=== PATIENT | male | born 1955 | race Caucasian/White ===

== ENCOUNTER 2018-09-13 11:41 | Outpatient (REF) | payer BC, SELFPAY ==
[2018-09-13 21:39] LABS: Anion Gap 8.8 mmol/L (3-11); BUN 15 mg/dL (7-18); CO2 29.2 mmol/L (21.0-32.0); Calcium 9.5 mg/dL (8.5-10.1); Chloride 103 mmol/L (98-107); Glucose 87 mg/dL (70-100); Potassium 4.1 mmol/L (3.5-5.1); Sodium 141 mmol/L (136-145)
== END 2018-09-13 12:01 ==
LOC: NCHCN 11:41
PROVIDERS: PCP Internal Medicine; Visit Provider Internal Medicine
DX: I10 Essential (primary) hypertension (principal)
CPT/HCPCS: 80048

== ENCOUNTER 2019-01-01 07:22 | Day surgery (SDC) | payer BC, SELFPAY ==
--- NOTE | 2019-01-01 06:44 | W.COLOREPORT ---
Date of service: 01/01/19 Time of Service: 10:05 Colonoscopy Report Date of procedure: 01/01/19 Pre-op diagnosis general: Family history of colon Cancer, screening Post-op diagnosis procedure note: same (multiple polyps) Procedure: Colonoscopy with polypectomy with cold forceps Surgeon: Fiorella Norris Anesthesia proc note operative: other (General/ ASA 2/Cedric Niño, HECTOR) Estimated blood loss (mL): 5 Pathology: other (Ascending polyp, sigmoid polyp x6, rectal polyp x3) Complications: None Disposition: same day Indications: Mr. Ruvalcaba is a pleasant 63 year old male seen in the office for a follow up Colonoscopy. He has a family history of colon Cancer in his sister at age 50. His last Colonoscopy was in 2012 and was incomplete due to incomplete prep. Risks, benefits and complications have been reviewed. Complications include but are not limited to bleeding, pain, perforation, missed small lesion/polyp, sore throat, aspiration and adverse reaction to the medications. Questions were entertained and answered to their satisfaction and they wished to proceed. No guarantees were given or implied. Prep: Miralax/Dulcolax Procedure Start Time: 10:05 Procedure End Time: 10:41 Retraction Time: 29 minutes Findings: 10 sessile polyps Procedure Description: After informed consent was obtained the patient was taken to the procedure room and placed in a left decubitous position. Monitors were applied and a time out was done. The patients name, date of , procedure, allergies to medications and metal in their body was reviewed. The patient was then sedated. Once sedated and comfortable a rectal exam was done. External exam was normal. Internal exam revealed a normal sphincter tone and no palpable masses. The prostate felt smooth but large. The scope was then introduced and retro-flexed. No internal hemorrhoids were identified. There were 2 small flat polyps noted, no masses. The scope was then advanced to the cecum without difficulty. The TI and appendiceal orifice were identified. The scope was advanced into the terminal ileum which was normal. The prep was adequate. The scope was then slowly retracted over 29 minutes back into the rectum. Polyps were removed with cold forceps x1 in the ascending colon, x6 in the sigmoid colon and x3 in the rectum. The scope was removed and the patient was woken up and taken back to Same day surgery in stable condition. The patient tolerated the procedure well and there were no immediate complications. Follow up: The patient should follow up in 3-5 years unless they develop changes in bowel habits or other new gastrointestinal complaints.
--- NOTE | 2019-01-01 06:46 | W.PM.DSUDISC ---
Discharge Plan Disposition Patient Disposition: HOME Condition: Good Discharge Details Reason For Visit: Colon Cancer Screening, Family history Attending Provider: Fiorella Norris Primary Care Provider: Jaron Ramirez Home Meds and New Rx's Prescriptions: Continued diphenhydramine HCl [Benadryl] 25 MG capsule 25 mg PO HS RF: 0 losartan 50 MG tablet 50 mg PO DAILY RF: 0 atorvastatin 20 MG tablet 20 mg PO DAILY RF: 0 escitalopram oxalate 5 mg Tablet 5 mg PO DAILY AM RF: 0 Discontinued polyethylene glycol 3350 17 gram/dose powder 238 g PO ONCE Qty: 238 RF: 0 bisacodyl [Dulcolax (bisacodyl)] 5 mg tablet,delayed release (DR/EC) 5 mg PO ONCE Qty: 4 RF: 0 Discharge Instructions Instructions: Colonoscopy (DC), Colorectal Polyps (DC) Additional Instructions: Findings: 10 polyps Follow up: 3-5 years Please call if you develop: fevers >101.5 Nausea or Vomiting Abdominal pain that is not transient DAY SURGERY UNIT POST COLONOSCOPY INSTRUCTIONS 1. Because there will be medication in your system for the next 24 hours, you may feel a little sleepy. Your coordination will be affected. Therefore: a. Do not drive or operate dangerous equipment for 24 hours. b. Do not drink alcohol beverages for 24 hours (not even beer). c. Plan to go home and rest for the day. 2. Generally there are no restrictions on your activity after a day or so has gone by, but you may feel a bit fatigued for a few days. 3 After you arrive home you may have a light meal and return to a normal diet as you can tolerate it without feeling sick to your stomach. 4. After surgery, you may feel pain or discomfort. This should be only transient, but if it persists please contact your doctor. 5. If there are any questions regarding the findings of your procedure, please feel free to contact your doctor. 6. If you are unable to contact your doctor with a problem, contact the hospital at [phone]. 7. Continue all your regular medications unless directed otherwise. I understand the above instructions and have no questions. Signature of Patient or Responsible Adult Escort Date/Time Name of Responsible Adult Escort Signature of Nurse Date/Time Activity:: Activity as Tolerated Diet:: As Tolerated Discharge Orders Discharge Orders: Discharge Order (Routine); Ordered 01/01/19 Ordered By: Fiorella Norris DS: Diagnosis Discharge Diagnosis (1) S/P colonoscopy: Status: Acute (2) Colorectal polyps: Status: Acute
[2019-01-01 08:32] VITALS: BP 132/82; PULSE 85; RESP 16; TEMP 36; O2SAT 99
[2019-01-01] MEDS: Lactated Ringers 1,000 ML 80 ML IV (09:01)
--- NOTE | 2019-01-01 10:07 | BOWEL_PTH ---
PATIENT: Martinez Ruvalcaba LOC: [facility] U#:[id number] AGE/SX: 63/M ROOM: RE01/01/[address]: Fiorella Norris MD : [id number] BED: DIS: 01/01/2019 SPEC #: [id number] RECD: 01/01/19 12:57 STATUS: COURTNEY REQ #: [id number] LARRY: 01/01/19 10:[address]: Fiorella Norris DEPT: Surgical Specimen RECD BY: Marisa Miller ENTERED: 01/01/19 12:59 SP TYPE: Bowel OTHR DR: Jaron Ramirez Tissues: 1 - BIOPSY BOWEL 2 - BIOPSY BOWEL 3 - BIOPSY BOWEL Procedures: GROSS AND MICRO LEVEL 4 Comments: [id number]
[2019-01-01 11:35] VITALS: BP 119/75; PULSE 77; RESP 16; TEMP 36; O2SAT 96
== END 2019-01-01 11:32 | disposition home or self-care (01) ==
LOC: SUR 07:22
PROVIDERS: PCP Internal Medicine; Visit Provider Surgery
PROC: 0DJD8ZZ Inspection of Lower Intestinal Tract, Via Natural or Artificial Opening Endoscopic (ICD-10-PCS; CPT 45378; principal; 2019-01-01 10:00)
DX: Z12.11 Encounter for screening for malignant neoplasm of colon (principal); D12.2 Benign neoplasm of ascending colon; K63.5 Polyp of colon; K62.1 Rectal polyp; Z80.0 Family history of malignant neoplasm of digestive organs
CPT/HCPCS: 45380; 88305

== ENCOUNTER 2019-06-25 12:13 | Outpatient (REF) | payer BC, SELFPAY ==
[2019-06-25 21:56] LABS: Anion Gap 5.4 mmol/L (3-11); BUN 14 mg/dL (7-18); CO2 31.6 mmol/L (21.0-32.0); CREATININE 1.09 mg/dL (0.70-1.30); Calcium 9.3 mg/dL (8.5-10.1); Calculated LDL 80 mg/dL; Chloride 106 mmol/L (98-107); Cholesterol 146 mg/dL (50-200); Glucose 90 mg/dL (70-100); HDL Cholesterol 50 mg/dL (40-60); Potassium 4.2 mmol/L (3.5-5.1); Sodium 143 mmol/L (136-145); Triglyceride 83 mg/dL (30-150)
== END 2019-06-25 12:33 ==
LOC: NCHCN 12:13
PROVIDERS: PCP Internal Medicine; Visit Provider Internal Medicine
DX: I10 Essential (primary) hypertension (principal); Z13.220 Encounter for screening for lipoid disorders
CPT/HCPCS: 80048; 80061

== ENCOUNTER 2019-07-19 13:12 | Outpatient (REF) | payer BC, SELFPAY ==
[2019-07-19 21:09] LABS: Anion Gap 10.7 mmol/L (3-11); BUN 19 mg/dL (7-18); CO2 27.3 mmol/L (21.0-32.0); CREATININE 1.23 mg/dL (0.70-1.30); Calcium 9.3 mg/dL (8.5-10.1); Calculated LDL 47 mg/dL; Chloride 105 mmol/L (98-107); Cholesterol 140 mg/dL (50-200); Estimated GFR 59.82 (mL/min/1.73m2); Glucose 105 mg/dL (70-100); HDL Cholesterol 47 mg/dL (40-60); Potassium 3.8 mmol/L (3.5-5.1); Sodium 143 mmol/L (136-145); Triglyceride 231 mg/dL (30-150)
== END 2019-07-19 13:32 ==
LOC: NCHCN 13:12
PROVIDERS: PCP Internal Medicine; Visit Provider Internal Medicine
DX: E78.5 Hyperlipidemia, unspecified (principal); I10 Essential (primary) hypertension
CPT/HCPCS: 80048; 80061

== ENCOUNTER 2020-03-25 10:13 | Outpatient (REF) | payer BC, SELFPAY ==
[2020-04-01 03:23] LABS: SARS-CoV-2 RNA Undetected (Undetected)
== END 2020-03-25 10:33 ==
LOC: NCHCN 10:13
PROVIDERS: PCP Internal Medicine; Visit Provider Nurse Practitioner Family
DX: J02.9 Acute pharyngitis, unspecified (principal); Z11.59 Encounter for screening for other viral diseases
CPT/HCPCS: U0003

== ENCOUNTER 2020-03-31 01:33 | Outpatient (CLI) | payer BC, SELFPAY ==
--- NOTE | 2020-03-31 12:21 | DI.US_ITS ---
APPROVED REPORT EXAM: Comprehensive 2D, Doppler, and color-flow Echocardiogram Patient Location: Out-Patient Cylinder Filler: Mallory Brennan RDCS (AE) Indications: Aortic Insufficiency Other Information Study Quality: Adequate Conclusion Normal left ventricular chamber size and wall thickness. Estimated ejection fraction is 55 to 60%. There are no segmental wall motion abnormalities Normal right ventricular size and function Normal left and right atrial size The aortic valve is sclerotic. There is mild to moderate aortic regurgitation. There is no aortic s tenosis Mild mitral annular calcification. Mitral leaflets are normal there is trace mitral regurgitation Structurally normal tricuspid and pulmonic valves. Trace tricuspid and pulmonic regurgitation. Norm al estimated RVSP 22 mmHg Aortic root and ascending aorta are normal in size Wall motion Left Ventricle The left ventricle is normal size. The left ventricular systolic function is normal. The left ventric ular ejection fraction is within the normal range. There is normal left ventricular wall thickness. T here is normal LV segmental wall motion. There is no ventricular septal defect visualized. LVEF is 55 -60%. Right Ventricle The right ventricle is normal size. The right ventricular systolic function is normal. The RVSP is 22 .0 mmHg. Atria The left atrium size is normal. The right atrium size is normal. The interatrial septum is intact wit h no evidence for an atrial septal defect. Aortic Valve The Aortic valve is sclerotic. Aortic valve leaflets are mildly thickened. No hemodynamically signifi cant valvular aortic stenosis. Mild to moderate aortic regurgitation. Trace aortic regurgitation. Mitral Valve Mild mitral annular calcification. No evidence of mitral valve stenosis. Trace mitral regurgitation. Tricuspid Valve The tricuspid valve is normal in structure. There is no tricuspid valve stenosis. Trace tricuspid reg urgitation. Pulmonic Valve The pulmonary valve is normal in structure. There is no pulmonic valvular stenosis. Trace pulmonic re gurgitation. Great Vessels The aortic root is normal in size. The ascending aorta is mildly dilated. Aortic arch is normal in ca liber. IVC is normal in size and collapses >50% with inspiration. Pericardium There is no pericardial effusion. 2D Dimensions IVSD d PLAX 0.97 cm M: 0.6-1.2 LV Vol A2C d MOD 89.3 mL LVPW d PLAX 0.97 cm M: 0.6 - 1.2 LV Vol A4C d MOD 113.1 mL LVID d PLAX 5.27 cm M: 4.2 - 5.8 LA vol/ BSA A2C s A-L 28.7 mL/m2 LVDs 3.65 cm M: 2.5 - 4.0 LA vol/ BSA A4C s A-L 21.9 mL/m2 Ao Root d 3.08 cm M: 3.1 - 3.7 LA Vol/ BSA Biplane s A-L 26.6 mL/m2 RA Area A4C 16.98 cm2 LA Area A4C s MOD 15.99 cm2 RA Vol/ BSA A4C s A-L 26.1 mL/m2 LA Area A2C s MOD 17.27 cm2 Ao Asc Diam d 3.81 cm M: 2.6 - 3.4 LV EF A4C MOD 55.7 % LV EF Teichholz 57.4 % LV EF A2C MOD 55.9 % LVEF (Perdue's) 55.98 % M: 52 - 72 LV EF Biplane MOD 56.0 % LV Volume 80.52 mL M: 62 - 150 SV 58.81 mL LV Volume Index 43.05 mL/m2 M: 34 - 74 SV Index 31.35 mL/m2 LV Vol Biplane MOD 105.0 mL FS 30.40 % M-Mode TAPSE 2.67 cm (M/F) >1.7 LV Diastology MV E' medial 0.106 (>0.07 m/s) E/A Ratio 0.8 LV E/e MED 6.40 (<14) MV E Vmax 0.68 (0.4-1.3 m/s) MV E' lateral 0.100 (>0.1 m/s) MV A Vmax 0.85 (0.4-1.3 m/s) LV E/e LAT 6.80 (<14) MV E/A Ratio 0.77 MV E/E' medial 6.44 MV E/E' lateral 6.83 Aortic Valve LVOT Area 3.46 cm2 AoV Area Vmax 1.78 cm2 LVOT Vmax 1.09 m/s AoV Area/ BSA (Vmax) 0.95 cm2/m2 LVOT Mean Neal. 0.83 m/s ALEX Mean Neal. 2.10 cm2 LVOT Peak Grad 4.7 mmHg ALEX Mean Neal. Index 1.12 cm2/m2 LVOT Mean Grad 3.0 mmHg AR DT 1988 msec LVOT VTI 0.235 m AR PHT 577 msec LVOT Diam s 2.10 cm AoV Vmax 2.11 m/s Velocity Ratio 0.51 AoV Mean Neal. 1.37 m/s AoV Peak Grad 17.8 mmHg LVOT SV 81.30 mL AoV Mean Grad 8.8 mmHg AoV VTI 0.450 m AoV Area VTI 1.81 cm2 AoV Area/ BSA (VTI) 0.96 cm/m2 Mitral Valve MV DT 392 (160-240 msec) MV PHT 114 msec MV Area PHT 1.93 cm2 Pulmonary Valve PV Vmax 1.19 (0.5-1.5 m/s) RVOT Peak Gr. 1.35 mmHg PV Peak Grad 5.7 mmHg RVOT Mean Gr. 0.60 mmHg PV Mean Grad 2.9 mmHg RVOT VTI 0.126 m PV VTI 0.230 m RVOT Vmax 0.58 m/s Tricuspid Valve TR Peak Grad 19.0 mmHg TR Vmax 2.18 m/s RA Pressure 3.00 mmHg RVSP (TR) 22.0 mmHg
== END 2020-03-31 01:53 ==
PROVIDERS: PCP Internal Medicine; Visit Provider Internal Medicine Cardiovascular Disease
DX: I35.1 Nonrheumatic aortic (valve) insufficiency (principal); I10 Essential (primary) hypertension; E78.5 Hyperlipidemia, unspecified
CPT/HCPCS: 93306

== ENCOUNTER 2020-08-24 10:57 | Outpatient (REF) | payer BC, SELFPAY ==
[2020-08-24 21:34] LABS: ALT 36 U/L (16-63); AST 21 U/L (15-37); Albumin 4.3 g/dL (3.4-5.0); Alkaline Phosphatase 76 U/L (46-116); Anion Gap 9.9 mmol/L (3-11); BUN 17 mg/dL (7-18); Bilirubin, Total 0.4 mg/dL (0.2-1.0); CO2 26.1 mmol/L (21.0-32.0); CREATININE 1.08 mg/dL (0.70-1.30); Calculated LDL 98 mg/dL (<100); Chloride 105 mmol/L (98-107); Cholesterol 169 mg/dL (<200); Glucose 91 mg/dL (74-106); HDL Cholesterol 50 mg/dL (40-60); Potassium 3.9 mmol/L (3.5-5.1); Sodium 141 mmol/L (136-145); Total Protein 7.4 g/dL (6.4-8.2); Triglyceride 106 mg/dL (<150)
[2020-08-25 18:03] LABS: PSA, Screening 0.7 ng/mL (0.0-4.5)
== END 2020-08-24 11:17 ==
LOC: NCHCN 10:57
PROVIDERS: PCP Internal Medicine; Visit Provider Internal Medicine
DX: I10 Essential (primary) hypertension (principal); E78.5 Hyperlipidemia, unspecified; Z12.5 Encounter for screening for malignant neoplasm of prostate
CPT/HCPCS: 80053; 80061; 84153

== ENCOUNTER 2020-12-09 10:56 | Emergency (ER) | payer OTHER, SELFPAY ==
[2020-12-09 11:00] VITALS: BP 174/98; PULSE 66; RESP 16; TEMP 36.5; O2SAT 95
--- NOTE | 2020-12-09 11:00 | DI.RAD_ITS ---
EXAM: XR TOE LT GREAT CLINICAL HISTORY: ecchymosis and swelling post flexion injury. TECHNIQUE: 2D digital imaging was performed. COMPARISON: No exams were available for comparison FINDINGS: There is no evidence of fracture of the great toe. Some degenerative changes noted in the lateral as pect of the metatarsophalangeal joint of the great toe. No significant sesamoid displacement. No ab normal widening of the Lisfranc joint. No radiopaque foreign body. IMPRESSION: No great toe fracture evident. DATA REPOSITORY: RADIATION DOSE DELIVERED:
--- NOTE | 2020-12-09 11:13 | ED.GENADUL_ITS ---
Discharge Plan Disposition Patient Disposition: HOME Condition: Good Discharge Details Clinical Impression: Fracture of great toe Primary Care Provider: Senait Melendez ED Provider: Marisa Medrano Home Meds and New Rx's Prescriptions: No Action diphenhydramine HCl [Benadryl] 25 MG capsule 25 mg PO HS RF: 0 losartan 50 MG tablet 50 mg PO DAILY RF: 0 atorvastatin 20 MG tablet 20 mg PO DAILY RF: 0 escitalopram oxalate 5 mg tablet 10 mg PO DAILY AM RF: 0 Discharge Instructions Additional Instructions: Follow-up with orthopedic tomorrow to schedule appointment Ice, elevate Ibuprofen and Tylenol as needed for pain Limited weightbearing Wear the boot Blood pressure recheck by primary care physician return earlier should you have new or worsening complaints Referrals: Sawyer Parmar MD [ [facility] STAFF PHYSICIAN] - Medical Decision Making No additional evidence of trauma, no abrasion, I did see a possible media avulsion fracture on x-ray, Ortho read the x-ray is negative i will send the patient to orthopedics for follow-up He placed in a postoperative boot His [id number] Return precautions discussed and patient understanding Differential Diagnosis Differential Diagnosis: Fracture, strain, contusion, abrasion Medical Records Medical records reviewed: Yes I reviewed the patient's medical records. HPI This 65-year-old male presents with injury to his left great toe on Monday. He states that he flat his toe while walking on ice. He denies any additional injuries. He actually does not really report pain, he states that it more was ecchymotic and this concerned him. He denies any history of coagulopathy. Denies any additional complaints at this time. Denies pain with ambulation. Specifically denies head injury or ankle pain. Denies any strength or sensation change. General Date/Time Provider Initiated Documentation: 12/09/20 11:07 . Related Data Home Medications Medication Instructions Recorded Confirmed diphenhydramine HCl [Benadryl] 25 mg PO HS 01/10/13 12/09/20 losartan 50 mg PO DAILY tab-cap 07/15/15 12/09/20 atorvastatin 20 mg PO DAILY tab-cap 01/18/17 12/09/20 escitalopram oxalate 5 mg tablet 10 mg PO DAILY AM tab 03/28/19 12/09/20 Allergies Allergy/AdvReac Type Severity Reaction Status Date / Time No Known Allergies Allergy Verified 12/09/20 11:05 General Stated Complaint: Orthopedic NATHALIE: 4 Review of Systems Narrative: Review of systems obtained x3 and negative aside from indication HPI PFSH Medical History (Updated 12/09/20 @ 11:45 by CITLALY Cifuentes) Anxiety Colorectal polyps (~01/01/19) Hypercholesterolemia Surgical History History of arthroscopic knee surgery rt knee History of colonoscopy S/P colonoscopy (~01/01/19) Family History Mother No problems noted. Father No problems noted. Sister Carcinoma of colon, stage IV W/ LUNG METS Sister No problems noted. Brother No problems noted. Social History Smoking/Tobacco Use Status: Former Tobacco Use Quit Date: 11/16/05 Pack-years: 10 Tobacco: How many years used: 20 Smoking risk assessment performed?: Yes Drug use: Never Substance use type: does not use Do you feel safe at home: Yes Do you feel safe in your relationship?: Yes Exam Extrem Other: Left great toe ecchymotic, no tenderness to any additional areas on left foot or right foot No ankle tenderness on left, no knee tenderness on left, neurovascularly intact Course Vital Signs Vital signs: Vital Signs Temperature 36.5 C 12/09/20 11:00 Pulse 66 12/09/20 11:00 Respiratory Rate 16 12/09/20 11:00 Blood Pressure 174/98 H 12/09/20 11:00 Pulse Oximetry 95 12/09/20 11:00 Temperature 36.5 C 12/09/20 11:00 Temperature Source Oral 12/09/20 11:00 Pulse 66 12/09/20 11:00 Respiratory Rate 16 12/09/20 11:00 Respiratory Effort 12/09/20 11:06 Blood Pressure 174/98 H 12/09/20 11:00 Blood Pressure Position Sitting 12/09/20 11:00 Pulse Oximetry 95 12/09/20 11:00 Oxygen Delivery Method Room Air 12/09/20 11:00 Oxygen Flow Rate 0 12/09/20 11:00 Pain Level 1 12/09/20 11:00 Comment hx HTN 12/09/20 11:00
[2020-12-09 11:55] VITALS: BP 155/83
== END 2020-12-09 11:57 | disposition home or self-care (01) ==
PROVIDERS: Emergency Provider Physician Assistant; PCP Internal Medicine
DX: S92.492A Other fracture of left great toe, initial encounter for closed fracture (principal); W00.0XXA Fall on same level due to ice and snow, initial encounter
CPT/HCPCS: 99283; 73660; 99282

== ENCOUNTER 2021-06-01 01:04 | Outpatient (CLI) | payer BC, SELFPAY ==
--- NOTE | 2021-06-01 06:45 | DI.NM_ITS ---
APPROVED REPORT Exam: Exercise Treadmill Patient Location: Out-Patient Room/Bed: Stress Nurse: Cielo Koch RN Ordering Provider:CHUNG REYES, Contact Number: BMI: 25.82 Baseline Rhythm: Sinus Rhythm Indications: Shortness of breath, Fatigue. Medical History Medical History: Aortic valve regurgitation, HLD, CLOUD. Cardiac Medications: Atorvastatin, Losartan Allergies: No known drug allergies Cardiac Risk Factors: HTN, Hyperlipidemia, Smoking (former) Previous Cardiac Procedures: None Pretest Chest Pain Characteristics: No chest pain Exercise History: Sedentary Physical Disabilities: Knees Lung Sounds: Clear to auscultation Heart Sounds: Regular Stress Test Details Test: Exercise stress testing was performed using a Hugo protocol. Nuclear Acquisition: Rest Tc-99m/Stress Tc-99m 1 day Rest Isotope: Tc-99m Sestamibi. Dose: 10.5 Date: 06/01/2021 Injection Time: 0900 Stress Isotope: Tc-99m Sestamibi. Dose: 34.0 Date: 06/01/2021 Injection Time: 1026 HR Resting HR Supine: 63 bpm Max Heart Rate (APMHR): 157.496834 bpm Resting HR Standin bpm Target HR (85% APMHR): 133.301724 bpm Max HR Achieved: 143 bpm % of APMHR: 91.08 Recovery HR: 83 bpm HR response to stress: Normal HR response to stress BP Resting BP Supine: 150/86 mmHg Resting BP Standin/78 mmHg Max BP: 210/88 mmHg Recovery BP: 160/82 mmHg BP response to stress: Abnormal hypertensive response to stress. Comment: Hypertensive at baseline ECG Resting ECG: Sinus Rhythm Ectopy: None Stress ECG: Sinus Tachycardia ST Change: horizontal ST depression Lead(s): II, III, aVF, V4, V5 Stage: 1,[address] Deviation: 2 mm Arrhythmia: None Recovery ECG: Sinus Rhythm Recovery ST Change: Horizontal ST depression Lead(s): II, III, aVF, V4, V5 Recovery ST Deviation: 1.5 mm Recovery Arrhythmia: PACs Comment: flipped T waves at minute 3 of recovery, returning to baseline by minute 12 of recovery Clinical Reason for Termination: Fatigue Stress Symptoms: Dyspnea, General Fatigue Exercise duration: 7 min16 sec Highest Stage Reached: Stage 3: 3.4 mph at 14% grade. Exercise capacity: 9.0 METs Rate Pressure Product: 32077 Stress ECG Conclusion 1. The patient exercised for 7 minutes (9 METS). Exercise was stopped due to fatigue. 2. Blood pressure response to exercise was hypertensive. 3. The patient developed horizontal ST depressions in both the inferior and lateral leads during exer cise. These ST abnormalities lasted until 1 minute into recovery. Stress Test Summary STAGE Time (mins) Speed (mph) Grade (%) HR BP SYMPTOMS METS Supine 63 150/86 Standing 69 170/78 1 3 1.7 10 117 162/74 SpO2 91% 4.6 2 6 2.5 12 135 190/84 SpO2 92%, mild SOB 7 1 min recovery 120 200/84 SpO2 93% 3 min recovery 86 210/88 SpO2 98% 6 min recovery 79 168/84 9 min recovery 83 160/82 MPI Conclusion The patient's ejection fraction was 50% with stress. There were no wall motion abnormalities. There is no evidence of ischemia on the imaging portion exam. This represents a discordant stress test with abnormal ECG findings but normal imaging. Radiologist Interpretation Radiologist agrees with Chief Drafter's Interpretation. Radiologist Interpretation by: Thao Monteiro MD Interpretation Date/Time: 06/01/2021 15:52:45
--- NOTE | 2021-06-01 07:34 | DI.US_ITS ---
APPROVED REPORT EXAM: Comprehensive 2D, Doppler, and color-flow Echocardiogram Patient Location: Out-Patient Fisheries Officer: Mallory Brennan RDCS (AE) Indications: Fatigue, Aortic valve regurgitation Other Information Study Quality: Good Conclusion Left Ventricle : The left ventricle is normal size. The left ventricular systolic function is normal. The left ventricular ejection fraction is within the normal range. There is normal left ventricular wall thickness. There is normal LV segmental wall motion. The left ventricular diastolic function is normal. LVEF is 58%. Right Ventricle : The right ventricle is normal size. The right ventricular systolic function is norm al. Aortic Valve : The Aortic valve is sclerotic. Aortic valve is trileaflet. Mild to moderate aortic reg urgitation. There is no aortic valvular stenosis. Great Vessels : The aortic root is normal in size. The ascending aorta is moderately dilated. Aortic arch is normal in caliber. IVC is normal in size and collapses >50% with inspiration. Please see remainder of study for further details. Wall motion Left Ventricle The left ventricle is normal size. The left ventricular systolic function is normal. The left ventric ular ejection fraction is within the normal range. There is normal left ventricular wall thickness. T here is normal LV segmental wall motion. The left ventricular diastolic function is normal. There is no ventricular septal defect visualized. LVEF is 58%. Right Ventricle The right ventricle is normal size. The right ventricular systolic function is normal. Atria The left atrium size is normal. The right atrium size is normal. The interatrial septum is intact wit h no evidence for an atrial septal defect. Aortic Valve The Aortic valve is sclerotic. Aortic valve is trileaflet. There is no aortic valvular stenosis. Mild to moderate aortic regurgitation. Mitral Valve The mitral valve is normal in structure. No evidence of mitral valve stenosis. Mild mitral regurgitat ion. Tricuspid Valve The tricuspid valve is normal in structure. There is no tricuspid valve stenosis. Trace tricuspid reg urgitation. Unable to assess PA pressure. Pulmonic Valve The pulmonary valve is normal in structure. There is no pulmonic valvular stenosis. Mild pulmonic reg urgitation. Great Vessels The aortic root is normal in size. The ascending aorta is moderately dilated. Aortic arch is normal i n caliber. IVC is normal in size and collapses >50% with inspiration. Pericardium There is no pericardial effusion. 2D Dimensions IVSD d PLAX 0.98 cm M: 0.6-1.2 LV Vol A2C d MOD 138.4 mL LVPW d PLAX 0.93 cm M: 0.6 - 1.2 LV Vol A4C d MOD 133.3 mL LVID d PLAX 4.94 cm M: 4.2 - 5.8 LA vol/ BSA A2C s A-L 36.1 mL/m2 LVDs 3.25 cm M: 2.5 - 4.0 LA vol/ BSA A4C s A-L 24.0 mL/m2 Ao Root d 3.70 cm M: 3.1 - 3.7 LA Vol/ BSA Biplane s A-L 30.9 mL/m2 RA Area A4C 13.53 cm2 LA Area A4C s MOD 17.19 cm2 RA Vol/ BSA A4C s A-L 19.2 mL/m2 LA Area A2C s MOD 20.10 cm2 Ao Asc Diam d 3.94 cm M: 2.6 - 3.4 LV EF A4C MOD 57.9 % LV EF Teichholz 61.6 % LV EF A2C MOD 59.6 % LVEF (Perdue's) 59.41 % M: 52 - 72 LV EF Biplane MOD 59.4 % LV Volume 106.11 mL M: 62 - 150 SV 82.72 mL LV Volume Index 55.84 mL/m2 M: 34 - 74 SV Index 43.35 mL/m2 LV Vol Biplane MOD 139.2 mL FS 33.20 % M-Mode TAPSE 2.19 cm (M/F) >1.7 LV Diastology MV E' medial 0.079 (>0.07 m/s) E/A Ratio 0.8 LV E/e MED 9.35 (<14) MV E Vmax 0.74 (0.4-1.3 m/s) MV E' lateral 0.101 (>0.1 m/s) MV A Vmax 0.90 (0.4-1.3 m/s) LV E/e LAT 7.30 (<14) MV E/A Ratio 0.79 MV E/E' medial 9.35 MV E/E' lateral 7.33 Aortic Valve LVOT Area 3.69 cm2 AoV Area Vmax 1.90 cm2 LVOT Vmax 0.98 m/s AoV Area/ BSA (Vmax) 1.00 cm2/m2 LVOT Mean Neal. 0.66 m/s ALEX Mean Neal. 1.79 cm2 LVOT Peak Grad 3.8 mmHg ALEX Mean Neal. Index 0.94 cm2/m2 LVOT Mean Grad 2.0 mmHg AR DT 1812 msec LVOT VTI 0.251 m AR PHT 526 msec LVOT Diam s 2.15 cm AoV Vmax 1.91 m/s Velocity Ratio 0.51 AoV Mean Neal. 1.37 m/s AoV Peak Grad 14.5 mmHg LVOT SV 92.68 mL AoV Mean Grad 8.2 mmHg AoV VTI 0.424 m AoV Area VTI 2.18 cm2 AoV Area/ BSA (VTI) 1.15 cm/m2 Mitral Valve MV DT 320 (160-240 msec) MV PHT 93 msec MV Area PHT 2.37 cm2 Pulmonary Valve PV Vmax 1.17 (0.5-1.5 m/s) RVOT Peak Gr. 0.94 mmHg PV Peak Grad 5.5 mmHg RVOT Mean Gr. 0.55 mmHg PV Mean Grad 2.5 mmHg RVOT VTI 0.129 m PV VTI 0.228 m RVOT Vmax 0.48 m/s
== END 2021-06-01 01:24 ==
LOC: DI 01:05
PROVIDERS: PCP Internal Medicine; Visit Provider Internal Medicine Cardiovascular Disease
DX: I35.1 Nonrheumatic aortic (valve) insufficiency (principal); R53.83 Other fatigue; I77.810 Thoracic aortic ectasia
CPT/HCPCS: 78452; 93017; 93306

== ENCOUNTER 2021-08-30 18:52 | Outpatient (REF) | payer BC, SELFPAY ==
[2021-08-30 18:47] LABS: Anion Gap 9.4 mmol/L (3-11); BUN 24 mg/dL (7-18); CO2 28.6 mmol/L (21.0-32.0); Calcium 9.2 mg/dL (8.5-10.1); Calculated LDL 95 mg/dL (<100); Chloride 105 mmol/L (98-107); Cholesterol 159 mg/dL (<200); Glucose 83 mg/dL (74-106); HDL Cholesterol 46 mg/dL (40-60); Potassium 4.3 mmol/L (3.5-5.1); Sodium 143 mmol/L (136-145); Triglyceride 93 mg/dL (<150)
== END 2021-08-30 18:53 | disposition home or self-care (01) ==
LOC: NCHCN 18:52
PROVIDERS: PCP Internal Medicine; Visit Provider Internal Medicine
DX: I10 Essential (primary) hypertension (principal); E78.5 Hyperlipidemia, unspecified
CPT/HCPCS: 80048; 80061

== ENCOUNTER 2021-10-11 15:20 | Outpatient (REF) | payer BC, SELFPAY ==
[2021-10-11 16:51] LABS: Anion Gap 7.4 mmol/L (3-11); BUN 17 mg/dL (7-18); CO2 30.6 mmol/L (21.0-32.0); CREATININE 1.2 mg/dL (0.70-1.30); Calcium 9.1 mg/dL (8.5-10.1); Chloride 103 mmol/L (98-107); Glucose 93 mg/dL (74-106); Sodium 141 mmol/L (136-145)
== END 2021-10-11 15:21 | disposition home or self-care (01) ==
LOC: NCHCN 15:20
PROVIDERS: PCP Internal Medicine; Visit Provider Internal Medicine
DX: I10 Essential (primary) hypertension (principal)
CPT/HCPCS: 80048

== ENCOUNTER 2022-06-06 09:21 | Outpatient (CLI) | payer BC, SELFPAY ==
--- NOTE | 2022-06-06 09:15 | RT.EKG_ITS ---
APPROVED REPORT Exam: Resting ECG Reason for Exam: HTN Patient Location: O HR:74 bpm ECG Measurements Heart Rate 74 AXIS DE 159 P 33 QRSd 95 QRS -4 QT 394 T 28 QTc 438 Conclusion Sinus rhythm...normal P axis, V-rate 50- 99 Normal Electrocardiogram
== END 2022-06-06 09:22 | disposition home or self-care (01) ==
LOC: DI.CARD 09:22
PROVIDERS: PCP Internal Medicine; Visit Provider Internal Medicine Cardiovascular Disease
DX: I10 Essential (primary) hypertension (principal); I35.1 Nonrheumatic aortic (valve) insufficiency
CPT/HCPCS: 93010

== ENCOUNTER 2022-10-19 15:57 | Outpatient (REF) | payer BC, SELFPAY ==
[2022-10-19 15:19] LABS: HGB 14.4 g/dL (13.5-17.5); MCH 28.6 pg (27.0-33.0); MCHC 32.7 % (32.0-36.0); MCV 88 fL (80-95); Platelet Count 319 10^3/uL (130-400); RBC 5.03 10^6/uL (4.36-5.78); RDW 12.9 % (11.8-14.1); RDW-SD 40.9 fL; WBC 6.62 10^3/uL (4.4-10.8)
[2022-10-19 15:32] LABS: Anion Gap 6.9 mmol/L (3-11); BUN 19 mg/dL (7-18); CO2 29.1 mmol/L (21.0-32.0); CREATININE 1.2 mg/dL (0.70-1.30); Calcium 9.7 mg/dL (8.5-10.1); Chloride 105 mmol/L (98-107); Estimated GFR 67.53 (mL/min/1.73m2); Glucose 104 mg/dL (74-106); Potassium 4.4 mmol/L (3.5-5.1); Sodium 141 mmol/L (136-145)
== END 2022-10-19 15:58 | disposition home or self-care (01) ==
LOC: NCHCN 15:57
PROVIDERS: PCP Internal Medicine; Visit Provider Internal Medicine
DX: I10 Essential (primary) hypertension (principal); R53.83 Other fatigue
CPT/HCPCS: 80048; 85027

== ENCOUNTER 2022-12-12 08:16 | Day surgery (SDC) | payer BC, SELFPAY ==
[2022-12-12 08:30] VITALS: BP 155/82; PULSE 72; RESP 16; TEMP 36.6; O2SAT 98
--- NOTE | 2022-12-12 08:59 | W.ANESPRE ---
General Info Date of Service Date Performed: 12/12/22 Height: 5 ft 6 in Weight: 81.2 kg Body Mass Index (BMI): 28.8 Surgical Procedure: Operation Date: 12/12/22 10:35 Proposed Procedure Side Surgeon p Colonoscopy Azam Damon MD Meds Allergies and Home Medications Allergies Allergy/AdvReac Type Severity Reaction Status Date / Time No Known Allergies Allergy Verified 12/12/22 08:36 Home Medication Medication Instructions Recorded diphenhydramine HCl 25 mg capsule 25 mg PO HS 01/10/13 (Benadryl) atorvastatin 20 mg tablet 20 mg PO DAILY 01/18/17 escitalopram oxalate 5 mg tablet 10 mg PO DAILY AM 03/28/19 losartan 100 1 tab PO DAILY 04/12/21 mg-hydrochlorothiazide 25 mg tablet bisacodyl 5 mg tablet,delayed 5 mg PO ONCE #4 tabs 12/01/22 release (Dulcolax (bisacodyl)) polyethylene glycol 3350 17 17 g PO ONCE #238 grams 12/01/22 gram/dose oral powder Cbd 12/09/22 Current Visit Medications: Current Medications Generic Name Dose Route Start Last Admin Trade Name Freq PRN Reason Stop Dose Admin Ringer's Solution 1,000 mls @ 80 mls/hr 12/12/22 06:00 IV 01/08/23 23:59 INFUSION GLORIA IV Miscellaneous Supplies 1 each 12/12/22 06:00 Iv Access IV 01/08/23 23:59 DIRECTED GLORIA Sodium Chloride 0 ml 12/12/22 06:00 Normal Saline Flush 10 Ml Syr IV 01/08/23 23:59 PRN PRN Sodium Chloride 0 ml 12/12/22 06:00 Normal Saline 10 Ml Vial IJ 01/08/23 23:59 DIRECTED PRN Sterile Water 0 ml 12/12/22 06:00 Water,Injection,Sterile 10 Ml Vial IJ 01/08/23 23:59 DIRECTED PRN PFSH Active Problems Active Problems: Problem Status Onset Code Encounter for screening colonoscopy Z12.11 S/P colonoscopy ~01/01/19 Z98.890 Colorectal polyps ~01/01/19 K63.5 Aortic valve regurgitation I35.1 Fracture of great toe S92.403A Fatigue R53.83 Hypertension I10 Family history of colon cancer Z80.0 Serrated adenoma of colon D12.6 Medical History Medical History Anxiety Hand tingling History of tobacco use Hypercholesterolemia Surgical History Surgical History (Updated 12/12/22 @ 08:36 by Nithya Espinosa) History of arthroscopic knee surgery rt knee History of colonoscopy History of repair of retinal tear by laser photocoagulation left eye Tobacco Smoking/Tobacco Use Status: Former Tobacco Use Alcohol Alcohol Intake: current Alcohol intake frequency: a few times a week Alcohol type: beer Substance Use Substance use: Never Substance use type: does not use Vital Signs and Lab Results Vital Signs Most Recent Vital Signs in EMR: Most Recent Vital Signs Temp Pulse Resp BP Pulse Ox 36.6 C 72 16 155/82 H 98 12/12/22 08:30 12/12/22 08:30 12/12/22 08:30 12/12/22 08:30 12/12/22 08:30 Lab Results Blood Type / Crossmatch: No Data to Display Complete Blood Count: No Data to Display Complete Metabolic Panel: No Data to Display Liver Function Panel: No Data to Display Coagulation Panel: No Data to Display Cardiac Panel: No Data to Display Arterial Blood Gas: No Data to Display Venous Blood Gas: No Data to Display Pancreas Panel: No Data to Display Thyroid Panel: No Data to Display Infectious Disease: No Data to Display Blood Cultures: No Data to Display Toxicology Panel: No Data to Display Imaging and Studies Imaging and Studies Study information below may be from another EMR and interpreted by another provider. Please see original notes in EMR for more complete details. EKG Summary: Conclusion Sinus rhythm...normal P axis, V-rate 50- 99 Normal Electrocardiogram Stress Test Summary: Stress ECG Conclusion 1. The patient exercised for 7 minutes (9 METS). Exercise was stopped due to fatigue. 2. Blood pressure response to exercise was hypertensive. 3. The patient developed horizontal ST depressions in both the inferior and lateral leads during exercise. These ST abnormalities lasted until 1 minute into recovery. Echocardiogram Summary: Conclusion Left Ventricle : The left ventricle is normal size. The left ventricular systolic function is normal. The left ventricular ejection fraction is within the normal range. There is normal left ventricular wall thickness. There is normal LV segmental wall motion. The left ventricular diastolic function is normal. LVEF is 58%. Right Ventricle : The right ventricle is normal size. The right ventricular systolic function is normal. Aortic Valve : The Aortic valve is sclerotic. Aortic valve is trileaflet. Mild to moderate aortic regurgitation. There is no aortic valvular stenosis. Great Vessels : The aortic root is normal in size. The ascending aorta is moderately dilated. Aortic arch is normal in caliber. IVC is normal in size and collapses >50% with inspiration. Please see remainder of study for further details. Wall motion 2020 Anesthesia Assessment and Plan Anesthesia History Personal History: No History of Anesthesia Complications Family History: No Family History of Anesthesia Complications Pertinent Negatives Pertinent Negatives: No Symptoms of GERD Cardiac & Pulmonary Exam Cardiac Exam: Normal S1/S2 Heart Sounds Pulmonary Exam: Clear Bilateral Breath Sounds Implantable Cardiac Device Does patient have a Pacemaker or an ICD?: No Airway Exam Known Difficult Airway: No Mallampati Class: 3 Mouth Opening: Normal (> 3cm) Thyromental Distance: Greater than 3 cm Neck Range of Motion: Full ROM Neck Circumference: Normal Teeth Condition: Normal Dentition ASA Classification ASA Score: ASA 2 Emergency Case?: No NPO Status NPO Status: NPO Clears >2 hours, Solids >8 hours Anesthesia Plan Resuscitation Status: Full Code Anesthesia Technique: General Anesthesia Airway Planned: Natural Airway Monitors Used: Standard Monitors
[2022-12-12] MEDS: Lactated Ringers 1,000 ML 80 ML IV (09:00)
--- NOTE | 2022-12-12 09:03 | W.COLOREPORT ---
Date of service: 12/12/22 Time of Service: 09:45 Colonoscopy Report Procedure Description: Procedures performed: 1. Colonoscopy with cold forceps polypectomy x3 Preoperative diagnosis: Surveillance colonoscopy, significant family history, colon polyps Postoperative diagnosis: Colorectal polyps Surgeon: Tyler Damon Anesthesia: Govind Indication for procedure: Patient is a 67-year-old man with no significant symptoms but a family history of a sister who from colorectal cancer in her 50s and he himself has had a sessile serrated adenoma removed on prior colonoscopy. He is due for surveillance. Findings: The terminal ileum was normal. I found multiple, flat/sessile polyps 2-5 mm in size. They were all confined to the sigmoid colon and rectum. Clinically they all appear to be hyperplastic polyps. I removed the most proximal one in the sigmoid colon with cold forceps technique, I removed 2 of the largest ones in the distal sigmoid colon with cold forceps technique and I removed the largest 1 in the rectum with cold forceps technique. There are many others remaining. There was no obvious diverticular disease noted and no significant hemorrhoidal disease. Surveillance/follow-up recommendations: As long as the histology proves to be hyperplastic (suspected) because of the family and personal history I recommend repeating in 5 years. I do not anticipate any of these will be sessile serrated polyps but if they are by chance, then he should have another flexible sigmoidoscopy within the next 3-6 months to ablate/destroy all of the remaining small/flat polyps in the sigmoid and rectum. I do not think this is going to be necessary because I think they are all hyperplastic. Complications: None Blood loss: Minimal Specimens:?? YES x3 Quality of Prep:?? Good Procedure in detail: Written consent was obtained from the patient who was in agreement with the risks, benefits and indications of the procedure.? We went to the endoscopy suite and laid the patient in left lateral decubitus position.? Anesthesia was administered which was tolerated well.? A timeout was performed and when we are all in agreement we began the procedure. Digital rectal exam and visual examination was performed and within normal limits.? A well?lubricated colonoscope was advanced without difficulty all the way to the cecum identified by the ileocecal valve, and triangular folds and appendiceal orifice.? The terminal ileum was intubated and appeared normal visually. It was then slowly withdrawn.?? Retroflexion was performed in the rectum.? The findings/interventions are noted above. The scope was then removed and the patient tolerated the procedure well and was then taken back to the PACU in hemodynamically stable condition.
--- NOTE | 2022-12-12 10:02 | BOWEL_PTH ---
PATIENT: Martinez Ruvalcaba LOC: [facility] U#:[id number] AGE/SX: 67/M ROOM: RE12/12/[address]: Azam Damon : 1955 BED: DIS: 12/12/2022 SPEC #: [id number] RECD: 12/12/22 12:27 STATUS: COURTNEY REQ #: [id number] LARRY: 12/12/22 10:[address]: Azam Damon DEPT: Surgical Specimen RECD BY: Marisa Miller ENTERED: 12/12/22 12:29 SP TYPE: Bowel OTHR DR: Senait Melendez Tissues: 1 - BIOPSY BOWEL 2 - BIOPSY BOWEL 3 - BIOPSY BOWEL Procedures: GROSS AND MICRO LEVEL 4 Comments: [id number]
[2022-12-12 10:18] VITALS: BP 116/68; PULSE 74; RESP 16; TEMP 36.5; O2SAT 97
--- NOTE | 2022-12-12 10:41 | W.ANESPOSTOP ---
Postoperative Evaluation Date, Time and Location Date Performed: 12/12/22 Time Performed: 10:18 Patient Location: Day Surgery Unit Vital Signs Most Recent Imported Vital Signs: Most Recent Vital Signs Temp Pulse Resp BP Pulse Ox 36.5 C 74 16 116/68 97 12/12/22 10:18 12/12/22 10:18 12/12/22 10:18 12/12/22 10:18 12/12/22 10:18 Pain Score Most Recent Pain Score: Most Recent Pain Score Pain Level 0 12/12/22 10:18 Assessment Mental Status: Awake (Alert & Oriented to Patient Baseline) Airway and Respiratory Function: Patent airway with normal (patient baseline) respiratory exam Cardiovascular Function: Hemodynamically Stable Hydration Status: Adequately Hydrated Nausea & Vomiting: No Nausea or Vomiting Pain: Pt. Denies Any Pain Peripheral Nerve Block: Patient did not receive a nerve block
[2022-12-12 10:42] VITALS: BP 136/75; PULSE 66; RESP 16; TEMP 36.7; O2SAT 95
--- NOTE | 2022-12-12 14:21 | W.ANESPRE ---
General Info Date of Service Date Performed: 12/12/22 Height: 5 ft 6 in Weight: 81.2 kg Body Mass Index (BMI): 28.8 Surgical Procedure: Operation Date: 12/12/22 10:35 Proposed Procedure Side Surgeon p Colonoscopy Azam Damon MD Actual Procedure Side Surgeon p Colonoscopy WITH POLYPECTOMIES Not Applicable Azam Damon MD Pre-Op Diagnosis Post-Op Diagnosis PERSONAL HISTORY OF COLON POLYPS, FAMILY HISTORY OF COLORECTAL CANCER POLYPS Meds Allergies and Home Medications Allergies Allergy/AdvReac Type Severity Reaction Status Date / Time No Known Allergies Allergy Verified 12/12/22 08:36 Home Medication Medication Instructions Recorded diphenhydramine HCl 25 mg capsule 25 mg PO HS 01/10/13 (Benadryl) atorvastatin 20 mg tablet 20 mg PO DAILY 01/18/17 escitalopram oxalate 5 mg tablet 10 mg PO DAILY AM 03/28/19 losartan 100 1 tab PO DAILY 04/12/21 mg-hydrochlorothiazide 25 mg tablet bisacodyl 5 mg tablet,delayed 5 mg PO ONCE #4 tabs 12/01/22 release (Dulcolax (bisacodyl)) polyethylene glycol 3350 17 17 g PO ONCE #238 grams 12/01/22 gram/dose oral powder Cbd 12/09/22 PFSH Active Problems Active Problems: Problem Status Onset Code Encounter for screening colonoscopy Z12.11 S/P colonoscopy ~01/01/19 Z98.890 Colorectal polyps ~01/01/19 K63.5 Aortic valve regurgitation I35.1 Fracture of great toe S92.403A Fatigue R53.83 Hypertension I10 Family history of colon cancer Z80.0 Serrated adenoma of colon D12.6 Medical History Medical History Anxiety Hand tingling History of tobacco use Hypercholesterolemia Surgical History Surgical History (Updated 12/12/22 @ 08:36 by Nithya Espinosa) History of arthroscopic knee surgery rt knee History of colonoscopy History of repair of retinal tear by laser photocoagulation left eye Tobacco Smoking/Tobacco Use Status: Former Tobacco Use Alcohol Alcohol Intake: current Alcohol intake frequency: a few times a week Alcohol type: beer Substance Use Substance use: Never Substance use type: does not use Vital Signs and Lab Results Vital Signs Most Recent Vital Signs in EMR: Most Recent Vital Signs Temp Pulse Resp BP Pulse Ox 36.7 C 66 16 136/75 95 12/12/22 10:42 12/12/22 10:42 12/12/22 10:42 12/12/22 10:42 12/12/22 10:42 Manually Entered Vital Signs Most Recent Manually Entered Vital Signs: Adult Blood Pressure: 155/82 Heart Rate: 72 Respirations: 16 Oxygen Saturation (%): 98 Temperature (C): 36.6 C Pain Score (0-10 Scale): 0 Lab Results Blood Type / Crossmatch: No Data to Display Complete Blood Count: No Data to Display Complete Metabolic Panel: No Data to Display Liver Function Panel: No Data to Display Coagulation Panel: No Data to Display Cardiac Panel: No Data to Display Arterial Blood Gas: No Data to Display Venous Blood Gas: No Data to Display Pancreas Panel: No Data to Display Thyroid Panel: No Data to Display Infectious Disease: No Data to Display Blood Cultures: No Data to Display Toxicology Panel: No Data to Display Imaging and Studies Imaging and Studies Study information below may be from another EMR and interpreted by another provider. Please see original notes in EMR for more complete details. EKG Summary: Conclusion Sinus rhythm...normal P axis, V-rate 50- 99 Normal Electrocardiogram Stress Test Summary: Stress ECG Conclusion 1. The patient exercised for 7 minutes (9 METS). Exercise was stopped due to fatigue. 2. Blood pressure response to exercise was hypertensive. 3. The patient developed horizontal ST depressions in both the inferior and lateral leads during exercise Echocardiogram Summary: Conclusion Left Ventricle : The left ventricle is normal size. The left ventricular systolic function is normal. The left ventricular ejection fraction is within the normal range. There is normal left ventricular wall thickness. There is normal LV segmental wall motion. The left ventricular diastolic function is normal. LVEF is 58%. Right Ventricle : The right ventricle is normal size. The right ventricular systolic function is normal. Aortic Valve : The Aortic valve is sclerotic. Aortic valve is trileaflet. Mild to moderate aortic regurgitation. There is no aortic valvular stenosis. Great Vessels : The aortic root is normal in size. The ascending aorta is moderately dilated. Aortic arch is normal in caliber. IVC is normal in size and collapses >50% with inspiration. Please see remainder of study for further details. Wall motion 06/08 Anesthesia Assessment and Plan Anesthesia History Personal History: No History of Anesthesia Complications Family History: No Family History of Anesthesia Complications Exercise Tolerance Exercise Tolerance: Metabolic Equivalents>4 Pertinent Negatives Pertinent Negatives: No Symptoms of GERD Cardiac & Pulmonary Exam Cardiac Exam: Normal S1/S2 Heart Sounds Pulmonary Exam: Clear Bilateral Breath Sounds Implantable Cardiac Device Does patient have a Pacemaker or an ICD?: No Airway Exam Known Difficult Airway: No Mallampati Class: 3 Mouth Opening: Normal (> 3cm) Thyromental Distance: Greater than 3 cm Neck Range of Motion: Full ROM Neck Circumference: Normal Teeth Condition: Normal Dentition ASA Classification ASA Score: ASA 2 Emergency Case?: No NPO Status NPO Status: NPO Clears >2 hours, Solids >8 hours Anesthesia Plan Resuscitation Status: Full Code Anesthesia Technique: General Anesthesia Airway Planned: Natural Airway Monitors Used: Standard Monitors Preoperative Comments:: Earlier record cancelled by error. Record recreated.
[2022-12-12 14:29] VITALS: BP 155/82; PULSE 72; RESP 16; TEMPC 36.6; O2SAT 98; BMI 28.8
== END 2022-12-12 11:35 | disposition home or self-care (01) ==
PROVIDERS: PCP Internal Medicine; Visit Provider Student in an Organized Health Care Education/Training Program
PROC: 0DJD8ZZ Inspection of Lower Intestinal Tract, Via Natural or Artificial Opening Endoscopic (ICD-10-PCS; CPT 45378; principal; 2022-12-12 10:30)
DX: Z12.11 Encounter for screening for malignant neoplasm of colon (principal); K63.5 Polyp of colon; K62.1 Rectal polyp; Z80.0 Family history of malignant neoplasm of digestive organs; Z86.010 Personal history of colon polyps
CPT/HCPCS: 45380; 88305

== ENCOUNTER → 2023-07-17 01:59 | Outpatient (CLI) | payer BC, SELFPAY ==
--- NOTE | 2023-07-17 15:45 | DI.US_ITS ---
APPROVED REPORT EXAM: Comprehensive 2D, Doppler, and color-flow Echocardiogram Patient Location: Out-Patient Stock Buyer: Mallory Brennan RDCS (AE) Indications: Non rheumatic valve disease, aortic regurgitation Other Information Study Quality: Adequate Conclusion Normal left ventricular wall thickness and chamber size. Ejection fraction is 55 to 60%. Wall motio n is normal Normal right ventricular size and systolic function Both atria are normal in size Aortic valve is sclerotic and trileaflet with mild regurgitation. There is no hemodynamically signif icant aortic stenosis Dilated ascending aorta measuring 4.17 cm Wall motion Left Ventricle The left ventricle is normal size. The left ventricular systolic function is normal. The left ventric ular ejection fraction is within the normal range. There is normal left ventricular wall thickness. T here is normal LV segmental wall motion. There is no ventricular septal defect visualized. LVEF is 57 %. Right Ventricle The right ventricle is normal size. The right ventricular systolic function is normal. Atria The left atrium size is normal. The right atrium size is normal. The interatrial septum is intact wit h no evidence for an atrial septal defect. Aortic Valve The Aortic valve is sclerotic. Aortic valve is trileaflet. No hemodynamically significant valvular a ortic stenosis. Mild aortic regurgitation. Mitral Valve The mitral valve is normal in structure. No evidence of mitral valve stenosis. Mild mitral regurgitat ion. Tricuspid Valve The tricuspid valve is normal in structure. There is no tricuspid valve stenosis. Trace tricuspid reg urgitation. Unable to assess PA pressure. Pulmonic Valve The pulmonary valve is normal in structure. There is no pulmonic valvular stenosis. Trace pulmonic r egurgitation. Great Vessels The aortic root is normal in size. The ascending aorta is moderately dilated. Aortic arch is normal i n caliber. IVC is normal in size and collapses >50% with inspiration. Pericardium There is no pericardial effusion. 2D Dimensions IVSD d PLAX 0.76 cm M: 0.6-1.2 Ao Root d 3.47 cm M: 3.1 - 3.7 LVPW d PLAX 0.75 cm M: 0.6 - 1.2 Ao Asc Diam d 4.17 cm M: 2.6 - 3.4 LVID d PLAX 5.55 cm M: 4.2 - 5.8 LVDs 3.86 cm M: 2.5 - 4.0 LV EF Teichholz 57.3 % FS 30.46 % LV EDV (Teich) 150.4 mL LV ESV (Teich) 64.2 mL M-Mode TAPSE 2.89 cm (M/F) >1.7 Auto EF LV EDV A4C 117.4 mL LV EDV A2C 154.5 mL LV EDV BP 135.4 mL LV ESV A4C 57.4 mL LV ESV A2C 66.4 mL LV ESV BP 61.3 mL LVEF(%) A4C 51.1 % LVEF(%) A2C 57.0 % LVEF(%) BP 54.7 % LV SV A4C 60.0 ml LV SV A2C 88.1 ml LV SV BP 74.1 ml LV CO A4C 3.2 L/min LV CO A2C 4.7 L/min LV CO BP 4.0 L/min HR A4C 53.18 BPM HR A2C 53.73 BPM LV EDV Index (BP) LV Strain Long Pk Overal Avg (s) 18.57 RV Strain Global Peak Long. Strain A4C 11.59 Global Peak Long. Strain A4C FW 11.06 LA Volume LA Length A4C 4.9 cm LA Length A2C 4.9 cm LA Area A4C s 18.21 cm2 LA Area A2C s 18.59 cm2 LA Vol A4C A-L 57.60 mL LA Vol A2C A-L 59.94 mL LA Vol Biplane A-L 58.8 mL LA Vol/BSA A4C A-L LA Vol/BSA A2C A-L LA Vol/BSA BP A-L 31.4 mL/m2 LA Vol A4C MOD 52.1 mL LA Vol A2C MOD 54.6 mL LA Vol BP MOD 52.9 mL RA Volume RA Area A4C 17.4 cm2 RA ESV A4C (A-L) 54.8mL RA Vol/BSA A4C A-L RA Length A4C 4.7 cm RA ESV A4C (MOD) 50.3mL LV Diastology MV E' medial 0.087 (>0.07 m/s) MV E Vmax 0.90 (0.4-1.3 m/s) MV E/E' MED 10.33 (<14) MV A Vmax 0.70 (0.4-1.3 m/s) MV E' lateral 0.092 (>0.1 m/s) E/A Ratio 1.3 MV E/E' LAT 9.83 (<14) MV E' Average 0.090 m/s MV E/E'(average) 10.07 Aortic Valve AoV Vmax 2.14 m/s LVOT Vmax 1.01 m/s AoV Peak Grad 32.4 mmHg LVOT Peak Grad 4.0 mmHg AoV Area (Vmax) 1.49 cm2 LVOT VTI 0.264 m AoV VTI 0.537 m LVOT Mean Grad 2.0 mmHg AoV Mean Neal. 1.36 m/s LVOT SV 84.02 mL AoV Mean Grad 8.9 mmHg LVOT Diam s 2.00 cm AoV Area (VTI) 1.56 cm2 AV Regurg Peak Gr. 46.35 mmHg Velocity Ratio 0.47 AR Decel Bullock 1.5m/sec2 AR DT 2268 msec AR PHT 658 msec AR Vmax 3.41 m/s Mitral Valve MV DT 202 (160-240 msec) MV Vmax TIPS 0.92 m/s MV Mean Grad 1.2 (<2mmHg) MV VTI 0.340 m Pulmonary Valve PV Vmax 1.18 (0.5-1.5 m/s) RVOT Vmax 0.50 m/s PV Peak Grad 5.6 mmHg RVOT Peak Gr. 1.0 mmHg PV Mean Neal 0.75 m/s RVOT VTI 0.128 m PV Mean Grad 2.7 mmHg RVOT Mean Gr. 0.6 mmHg Tricuspid Valve RA Pressure 3.00 mmHg TV S' 0.17 m/s
== END ==
PROVIDERS: PCP Internal Medicine; Visit Provider Internal Medicine Cardiovascular Disease
DX: I35.1 Nonrheumatic aortic (valve) insufficiency (principal)
CPT/HCPCS: 93306

== ENCOUNTER 2023-10-23 11:24 | Outpatient (REF) | payer BC, SELFPAY ==
[2023-10-23 15:41] LABS: ALT 30 U/L (16-63); AST 25 U/L (15-37); Albumin 4.2 g/dL (3.4-5.0); Alkaline Phosphatase 83 U/L (46-116); Anion Gap 7.8 mmol/L (3-11); BUN 17 mg/dL (7-18); Bilirubin, Total 0.6 mg/dL (0.2-1.0); CO2 28.2 mmol/L (21.0-32.0); CREATININE 1.2 mg/dL (0.70-1.30); Calcium 9.7 mg/dL (8.5-10.1); Chloride 104 mmol/L (98-107); Estimated GFR 67.11 (mL/min/1.73m2); Glucose 95 mg/dL (74-106); Potassium 4.2 mmol/L (3.5-5.1); Sodium 140 mmol/L (136-145); Total Protein 7.9 g/dL (6.4-8.2)
== END 2023-10-23 11:25 | disposition home or self-care (01) ==
LOC: NCHCN 11:24
PROVIDERS: PCP Internal Medicine; Visit Provider Internal Medicine
DX: I10 Essential (primary) hypertension (principal)
CPT/HCPCS: 80053

== ENCOUNTER 2024-10-30 09:39 | Outpatient (REF) | payer BC, SELFPAY ==
[2024-10-30 14:42] LABS: ALT 38 U/L (16-63); AST 28 U/L (15-37); Albumin 4.1 g/dL (3.4-5.0); Alkaline Phosphatase 92 U/L (46-116); Anion Gap 9.4 mmol/L (3-11); BUN 18 mg/dL (7-18); CO2 26.6 mmol/L (21.0-32.0); CREATININE 1.3 mg/dL (0.70-1.30); Calcium 9.3 mg/dL (8.5-10.1); Calculated LDL 102 mg/dL (<100); Chloride 106 mmol/L (98-107); Cholesterol 178 mg/dL (<200); Estimated GFR 60.59 (mL/min/1.73m2); Glucose 104 mg/dL (74-106); HDL Cholesterol 57 mg/dL (40-60); Potassium 4.1 mmol/L (3.5-5.1); Sodium 142 mmol/L (136-145); Total Protein 7.7 g/dL (6.4-8.2); Triglyceride 96 mg/dL (<150)
== END 2024-10-30 09:40 | disposition home or self-care (01) ==
LOC: NCHCN 09:39
PROVIDERS: PCP Internal Medicine; Visit Provider Internal Medicine
DX: I10 Essential (primary) hypertension (principal); E78.5 Hyperlipidemia, unspecified
CPT/HCPCS: 80053; 80061

== ENCOUNTER 2025-01-31 19:24 | Outpatient (REF) | payer BC, SELFPAY ==
[2025-02-03 09:21] LABS: PSA, Screening 0.7 ng/mL (<=4.5)
== END 2025-01-31 19:25 | disposition home or self-care (01) ==
LOC: NCHCN 19:24
PROVIDERS: PCP Internal Medicine; Visit Provider Internal Medicine
DX: Z12.5 Encounter for screening for malignant neoplasm of prostate (principal)
CPT/HCPCS: 84153